=== PATIENT | female | born 1965 | race Caucasian/White ===

== ENCOUNTER → 2019-08-09 | Outpatient (CLI) | payer BC ==
[2019-08-09 12:16] LABS: ABSOLUTE EOSINOPHILS # (AUTO) 0.2 10^3/uL (0.0-0.6); ABSOLUTE LYMPHOCYTES (AUTO) 1.9 10^3/uL (0.5-4.7); ABSOLUTE MONOCYTES (AUTO) 0.7 10^3/uL (0.1-1.4); ABSOLUTE NEUT (AUTO) 3.6 10^3/uL (1.7-8.2); BASOPHILS % (AUTO) 0.5 % (0-2); EOSINOPHILS % (AUTO) 2.8 % (0-6); HEMATOCRIT 40.8 % (36.0-47.0); HEMOGLOBIN 13.8 g/dL (12.0-15.5); LYMPHOCYTES % (AUTO) 29.2 % (13-45); MEAN CORPUSCULAR HEMOGLOBIN 31.3 pg (27.0-33.4); MEAN CORPUSCULAR HGB CONC 33.9 g/dL (32.0-36.0); MEAN CORPUSCULAR VOLUME 92 fl (80-97); MONOCYTES % (AUTO) 11.2 % (3-13); PLATELET COUNT 156 10^3/uL (150-450); RED BLOOD COUNT 4.42 10^6/uL (3.72-5.28); RED CELL DISTRIBUTION WIDTH 13.7 % (11.5-14.0); SEGMENTED NEUTROPHILS % (AUTO) 56.3 % (42-78); TOTAL CELLS COUNTED % (AUTO) 100 %; WHITE BLOOD COUNT 6.4 10^3/uL (4.0-10.5)
[2019-08-09 12:54] LABS: ALBUMIN 4.7 g/dL (3.5-5.0); ALKALINE PHOSPHATASE 77 U/L (38-126); ASPARTATE AMINO TRANSFERASE 53 U/L (14-36); BILIRUBIN,DIRECT 0.2 mg/dL (0.0-0.4); BILIRUBIN,TOTAL 0.4 mg/dL (0.2-1.3); TOTAL PROTEIN 6.9 g/dL (6.3-8.2)
== END ==
LOC: OD 11:14
PROVIDERS: ATTEND Ophthalmology
DX: H53.10 Unspecified subjective visual disturbances (principal); H30.93 Unspecified chorioretinal inflammation, bilateral; H35.052 Retinal neovascularization, unspecified, left eye
CPT/HCPCS: 36415; 80076; 85025

== ENCOUNTER 2019-11-20 20:22 | Emergency (ER) | payer BC ==
[2019-11-20] MEDS ORDERED: HYDROCODONE/ACETAMINOPHEN 5-325 MG TABLET PO ONE (21:35)
--- NOTE | 2019-11-20 21:37 | ER Document Report ---
ED Medical Screen (RME) - General Chief Complaint: Fall Stated Complaint: FALL,LEFT ELBOW/KNEE PAIN Time Seen by Provider: 11/20/19 21:28 Primary Care Provider: BONNIE DURAN MD [Primary Care Provider] - Follow up as needed Information source: Patient Notes: Patient presents complaining of frequent falls recently. Patient states today she was attempting to get out of her vehicle and fell landing on her left side injuring the elbow, left rib area and left knee. Patient denies any shortness of breath although complains of pain with inspiration. I have greeted and performed a rapid initial assessment of this patient. A comprehensive ED assessment and evaluation of the patient, analysis of test results and completion of the medical decision making process will be conducted by additional ED providers. TRAVEL OUTSIDE OF THE [place] IN LAST 30 DAYS: No - Related Data Allergies/Adverse Reactions: No Known Allergies Allergy (Unverified 11/20/19 21:28) Physical Exam - Vital signs Vitals: Temp Pulse Resp BP Pulse Ox 98.1 F 41 L 18 116/66 98 11/20/19 20:28 11/20/19 20:28 11/20/19 20:28 11/20/19 20:28 11/20/19 20:28 - General General appearance: Alert Notes: Left lower anterior rib tenderness, no abdominal tenderness appreciated from examination in chair Course - Vital Signs Vital signs: Temp Pulse Resp BP Pulse Ox 98.1 F 41 L 18 116/66 98 11/20/19 20:28 11/20/19 20:28 11/20/19 20:28 11/20/19 20:28 11/20/19 20:28 Doctor's Discharge - Discharge Referrals: BONNIE DURAN MD [Primary Care Provider] - Follow up as needed
[2019-11-20 22:24] LABS: ABSOLUTE BASOPHILS # (AUTO) 0.1 10^3/uL (0.0-0.2); ABSOLUTE EOSINOPHILS # (AUTO) 0.3 10^3/uL (0.0-0.6); ABSOLUTE LYMPHOCYTES (AUTO) 2.4 10^3/uL (0.5-4.7); ABSOLUTE MONOCYTES (AUTO) 0.7 10^3/uL (0.1-1.4); ABSOLUTE NEUT (AUTO) 3.2 10^3/uL (1.7-8.2); BASOPHILS % (AUTO) 0.8 % (0-2); HEMATOCRIT 39.1 % (36.0-47.0); LYMPHOCYTES % (AUTO) 36.6 % (13-45); MEAN CORPUSCULAR HEMOGLOBIN 31.1 pg (27.0-33.4); MEAN CORPUSCULAR HGB CONC 33.2 g/dL (32.0-36.0); MEAN CORPUSCULAR VOLUME 94 fl (80-97); MONOCYTES % (AUTO) 10.9 % (3-13); PLATELET COUNT 159 10^3/uL (150-450); RED BLOOD COUNT 4.17 10^6/uL (3.72-5.28); RED CELL DISTRIBUTION WIDTH 13.2 % (11.5-14.0); SEGMENTED NEUTROPHILS % (AUTO) 47.7 % (42-78); TOTAL CELLS COUNTED % (AUTO) 100 %; WHITE BLOOD COUNT 6.6 10^3/uL (4.0-10.5)
[2019-11-20 22:33] LABS: APPEARANCE,URINE SLIGHTLY-CLOUDY; BILIRUBIN,URINE NEGATIVE (NEGATIVE); CALCIUM OXALATE CRYSTALS,URINE MODERATE /HPF; COLOR,URINE YELLOW; GLUCOSE, URINE NEGATIVE (NEGATIVE); KETONES,URINE TRACE mg/dL (NEGATIVE); LEUKOCYTE ESTERASE,URINE TRACE (NEGATIVE); NITRITE,URINE NEGATIVE (NEGATIVE); PROTEIN,URINE 30 mg/dL (NEGATIVE); URINE SPECIFIC GRAVITY 1.034
[2019-11-20 22:40] LABS: ALBUMIN 4.2 g/dL (3.5-5.0); ALKALINE PHOSPHATASE 69 U/L (38-126); ANION GAP 9 (5-19); ASPARTATE AMINO TRANSFERASE 38 U/L (14-36); BILIRUBIN,DIRECT 0.3 mg/dL (0.0-0.4); BILIRUBIN,TOTAL 0.4 mg/dL (0.2-1.3); BLOOD UREA NITROGEN 19 mg/dL (7-20); CALCIUM 10.3 mg/dL (8.4-10.2); CARBON DIOXIDE 27 mmol/L (22-30); CHLORIDE 105 mmol/L (98-107); GLUCOSE 122 mg/dL (75-110); POTASSIUM 4.1 mmol/L (3.6-5.0); TOTAL PROTEIN 6.9 g/dL (6.3-8.2)
--- NOTE | 2019-11-20 23:52 | RADIOLOGY REPORT (SQ) ---
Left knee four view on 11/20/2019 at 10:31 PM CLINICAL INDICATION: Pain after fall COMPARISON: None FINDINGS: There are no fractures. No joint effusion is noted. Visualized joints are well aligned. No bony abnormality is noted. IMPRESSION: No acute abnormality.
--- NOTE | 2019-11-20 23:53 | RADIOLOGY REPORT (SQ) ---
Chest 2 view on 11/20/2019 at 10:24 PM CLINICAL INDICATION: Left rib pain after fall COMPARISON: None FINDINGS: Bilateral nipple shadows are noted. Lungs are clear. There is no pneumothorax or pleural effusion. Cardiac, hilar and mediastinal contours are within normal limits. Pulmonary vascularity is within normal limits. No bony abnormality is noted. IMPRESSION: No acute disease.
--- NOTE | 2019-11-20 23:57 | RADIOLOGY REPORT (SQ) ---
Left elbow four view on 11/20/2019 at 10:22 PM CLINICAL INDICATION: Elbow pain after fall COMPARISON: None FINDINGS: There are no fractures. Visualized joints are well aligned. No joint effusion to suggest an occult fracture is noted. No bony normality is noted. IMPRESSION: No acute abnormality.
[2019-11-21] MEDS ORDERED: DIPH/PERTUSS(ACELL)/TETANUS VAC/PF 0.5 ML SYR (>=10YO) IM ONE (00:29)
[2019-11-21] MEDS ORDERED: NEOMY/BACITRAC ZN/POLY OINT 15 GM TP ONE (00:38)
[2019-11-21] MEDS ORDERED: HYDROCODONE/ACETAMINOPHEN 5-325 MG TABLET PO ONE ×2 (00:45→02:44)
--- NOTE | 2019-11-21 00:53 | ER Document Report ---
ED General - General Chief Complaint: Fall Stated Complaint: FALL,LEFT ELBOW/KNEE PAIN Time Seen by Provider: 11/20/19 21:28 Primary Care Provider: [facility] [Provider Group] - Follow up in 3-5 days (Follow-up in the care clinic for dental referral or you can see a dentist choosing) BONNIE DURAN MD [ASSOCIATE] - Follow up as needed KODY CLARKE MD [EMERITUS] - Follow up in 3-5 days TRAVEL OUTSIDE OF THE [place] IN LAST 30 DAYS: No - Related Data Allergies/Adverse Reactions: No Known Allergies Allergy (Unverified 11/20/19 21:28) Past Medical History - General Information source: Patient - Social History Smoking Status: Former Smoker Family History: Reviewed & Not Pertinent Patient has suicidal ideation: No Patient has homicidal ideation: No Physical Exam - Vital signs Vitals: Temp Pulse Resp BP Pulse Ox 98.1 F 41 L 18 116/66 98 11/20/19 20:28 11/20/19 20:28 11/20/19 20:28 11/20/19 20:28 11/20/19 20:28 - Notes Notes: Resents emerged department status post fall about 12 hours ago. She was at the doctor's office getting ready to get out of the car when her foot got hung up on her pocketbook causing her to fall onto her left knee and left elbow. She thinks she might of rolling or her elbow went into her anterior chest on the left she did not hit her head. There is no loss of consciousness. She sat on the ground for few minutes and then was able to get to the doctor's office. Resents now for evaluation. Plan for a mild frontal headache pain over left anterior chest left knee and elbow pain. Again she denies hitting her head she has no abnormal vision neck pain shortness of breath nausea vomiting or abdominal pain. Says her appetite is been good and had something to eat this afternoon Reports that she is has been having frequent stumbling episodes over the past several months. Most of times occurs when she first stands up leg seems to jerk a little bit and stumbles but has not really fallen at all. She has had occ asional episodes when she has been walking usually associated with pain in her left groin but again indicates he has really fallen just kind of stumbled. Seen anybody for this. says she is not really formed at all in between his episodes she feels fine. Not had any palpitations pain or shortness of breath associated with this Past medical history is negative for diabetes hypertension or heart disease. She does have fibromyalgia and chronic eye problems Social history smokes but quit occasional alcohol. Tetanus status is unknown Medication she is not sure what medication she takes for blood pressure but does not think is a diuretic Review of systems pertinent positives and negatives in HPI otherwise all the systems were reviewed and acutely negative PHYSICIAN EXAM -vital signs are noted triage note and note from triage reviewed he was noted GENERAL: Well-appearing, well-nourished and in __mild distress____ HEAD: Atraumatic, normocephalic. EYES: Pupils equal round and reactive to light, extraocular movements intact, sclera anicteric, conjunctiva are normal. There is a mild injection around the right eye which is chronic ENT: nares patent, oropharynx clear without exudates. Moist mucous membranes. She is. Face is nontender she has a cracked tooth with caries #5 abscess not seen NECK: supple without lymphadenopathy neck is nontender midline full range of motion LUNGS: Breath sounds clear to auscultation bilaterally and equal. No wheezes rales or rhonchi. She has a moderate degree of pain over the lower right anterior costal margin and about the midline no actual crepitus. There is no pain in left upper chest the substernal area or over the left lateral chest HEART: Regular rate and rhythm without murmurs distant heart sounds were not heard ABDOMEN: Soft, nontender, normoactive bowel sounds. No localizing tenderness in the left upper quadrant and spleen is not enlarged EXTREMITIES: Right upper extremity shoulder elbow and wrist are nontender. Right lower extremity knee and ankle are nontender left lower extremity she is got abrasion of the knee. The patella is nontender. Is full range of motion of the knee with no laxity in the posterior medial lateral. The ankle is nontender pulses in the foot extremity the shoulder is nontender. She has some minimal tenderness of the lateral aspect of the elbow with full range of motion with pronation and supination wrist is nontender NEUROLOGICAL: Alert and oriented x4. Cranial nerves he has symmetrical smile facies and shoulder shrug. His motor strength is 5/5 bilaterally in the upper and lower extremities. Toes downgoing. Sensation is intact to light touch is a negative Romberg and normal gait observed by me normal PSYCH: Normal mood, normal affect. SKIN: Warm, Dry, normal turgor, no rashes or lesions noted. BACK-nontender in the midline pelvis is stable for range of motion both hips Differential diagnosis includes cerebellar lesions cephalitis electrolyte abnormality anemia arrhythmia fracture Course - Re-evaluation Re-evalutation: 11/21/19 00:52 ED patient is remained stable with serial neurological exams nonfocal she was given dose of Vicodin as a tetanus shot 11/21/19 02:16 Medical decision making patient presents status post fall getting out of the car. Work-up is unremarkable she looks well can be discharged home. Unclear as to why she is having these episodes of stumbling. Will need follow-up as an outpatient. To be asymptomatic with the PVCs doubt that her heart rate was really 41 when she arrived. Plan at this point will discharge her home given a prescription for Vicodin 1 side effects of medication. Should be given the number for the care center for follow-up and for dental care in 1 week and also given number for cardiology for follow-up. At this time there is no indication for admission. I have discussed the findings with patient/family with return precautions and follow-up recommendations. Verbal discharge instructions given at the bedside and opportunity for questions given. Medication warnings were given if indicated. Patient is in agreement with this plan and has verbalized understanding of return precautions and the need for primary care follow-up as directed.. - Vital Signs Vital signs: Temp Pulse Resp BP Pulse Ox 97.5 F 54 L 16 109/49 L 98 11/21/19 02:38 11/21/19 02:38 11/21/19 02:38 11/21/19 02:38 11/21/19 02:38 - Laboratory Result Diagrams: 11/20/19 21:45 11/20/19 21:45 Laboratory results interpreted by me: 11/20/19 11/20/19 21:45 21:45 Glucose 122 H Calcium 10.3 H AST 38 H Urine Protein 30 H Urine Ketones TRACE H Urine Urobilinogen 2.0 H Ur Leukocyte Esterase TRACE H Urine Ascorbic Acid 40 H - Diagnostic Test Radiology reviewed: Reports reviewed - EKG Interpretation by Me Additional EKG results interpreted by me: 11/21/19 00:53 EKG read by me shows a normal sinus rhythm with ventricular bigeminy QT interval is prolonged at 0.53 there are no old EKGs for comparison Discharge - Discharge Clinical Impression: Multiple contusions, PVCs (premature ventricular contractions), Dental caries Condition: Stable Disposition: HOME, SELF-CARE Additional Instructions: Contusion Your injury has resulted in a contusion -- a crushing of the deep tissues. No injury to important structures was detected during the physician's exam. Contusions vary in the amount of pain they cause, and in the length of time requ ired for healing. Typically, the area will become bruised, and will remain painful to touch for two or three weeks. However, most patients are back to working and playing within a few days. After the initial period of rest and cold-packs, your symptoms (together with the doctor's recommendations) will determine how rapidly you can get back to full activity. Usually this means "do what feels okay, but don't do things that hurt." If re-examination was recommended, it's important to follow up as instructed. Call the doctor or return any time if pain increases, if swelling becomes severe, if you develop numbness or weakness in an injured extremity, or if any other alarming symptoms occur.Abrasions An abrasion is a scraping injury of the skin. Some scarring may result. The seriousness of an abrasion is not always obvious at first. Hidden tissue d amage may be present and infection may occur despite proper care. Complete healing may take from ten days to as long as a month. The healing time depends on the depth of the abrasion, and on the amount of crushing of underlying tissues from the injury. Keep the wound and dressing clean. Do not shower or bathe the area until okayed by the doctor. If the dressing gets wet, remove it and blot the wound dry, then reapply a clean dressing. Dressings should be changed every day. Sunscreen should be used for six months after the skin is healed. If any signs of infection occur (swelling, redness, increasing tenderness, red streaks, profuse purulent drainage from the abrasion, tender lumps in the armpit or groin above the abrasion, or fever), see the doctor immediately. Dental Infection or Abscess You have an infection, perhaps an abscess (pus formation) of the gum around one of your teeth, which is probably decayed. If there is an abscess, it may drain on its own or it may need to be opened or lanced. Severe swelling or drainage around a tooth usually means a deep dental abscess which usually requires evaluation and treatment by a dentist or oral surgeon. Antibiotics may be prescribed while awaiting dental treatment. If you develop high fever with chills, worsening pain, or increasing swelling in the area, see a dentist or oral surgeon immediately or return to the Emergency Department immediately. Please review the discharge instructions, they will tell you about your disease/injury and what you need to return to the ED for Return to the ED if you feel worse or can follow-up with your family doctor The pain medications may cause drowsiness. Be careful if you are using crutches. Do not drive or operate machinery. Do not take Tylenol with the pain medication You need to see a dentist in the next 2 to 3 days Give you the number for cardiology for follow-up also Prescriptions: Hydrocodone/Acetaminophen [[place] 5-325 Tablet] 1 each PO Q6H PRN #10 tablet PRN Reason: Penicillin V Potassium [Penicillin Vk 500 mg Tablet] 500 mg PO BID #10 tablet Referrals: BONNIE DURAN MD [ASSOCIATE] - Follow up as needed KODY CLARKE MD [EMERITUS] - Follow up in 3-5 days [facility] [Provider Group] - Follow up in 3-5 days (Follow-up in the care clinic for dental referral or you can see a dentist choosing)
[2019-11-21 02:39] VITALS: BP 109/49
--- NOTE | 2019-11-21 02:40 | RADIOLOGY REPORT (SQ) ---
CT HEAD WITHOUT IV CONTRAST EXAM DATE: 11/21/2019 12:29 AM [employer] HISTORY: Trauma. COMPARISON: None. TECHNIQUE: CT scan of the brain without IV contrast. This exam was performed according to our departmental dose-optimization program, which includes automated exposure control, adjustment of the mA and/or kV according to patient size and/or use of iterative reconstruction technique. FINDINGS: The ventricles, cisterns, and sulci are age-appropriate. No evidence of acute infarction, intracranial hemorrhage, extra-axial fluid collection, or midline shift. No air-fluid levels are seen in the paranasal sinuses to suggest acute sinusitis. No depressed skull fracture. IMPRESSION: No acute intracranial findings.
[2019-11-21] MEDS ORDERED: HYDROCODONE/ACETAMINOPHEN 5-325 MG (6 TAB/ER DISP) PO PRN (02:50)
--- NOTE | 2019-11-21 20:04 | EKG REPORT ---
SEVERITY:- ABNORMAL ECG - SINUS RHYTHM VENTRICULAR BIGEMINY BORDERLINE T ABNORMALITIES, ANT-LAT LEADS : Confirmed by: Carlos Gonzalez MD 21-Nov-2019 20:03:14
== END 2019-11-21 03:12 | disposition home or self-care (01) ==
LOC: ER 20:22
DX: T14.8XXA Other injury of unspecified body region, initial encounter (principal); S80.212A Abrasion, left knee, initial encounter; R51 Headache; R07.9 Chest pain, unspecified; M25.562 Pain in left knee; M25.522 Pain in left elbow; W19.XXXA Unspecified fall, initial encounter; Y93.89 Activity, other specified; Y92.531 Health care provider office as the place of occurrence of the external cause; K02.9 Dental caries, unspecified; K03.81 Cracked tooth; I49.3 Ventricular premature depolarization; Z87.891 Personal history of nicotine dependence; Z23 Encounter for immunization; Z79.899 Other long term (current) drug therapy
CPT/HCPCS: 36415; 70450; 71046; 80053; 81001; 85025; 90471; 90715; 93005; 93010; 99284; J3490

== ENCOUNTER → 2019-12-23 | Outpatient (CLI) | payer BC ==
[2019-12-23 16:43] LABS: ABSOLUTE EOSINOPHILS # (AUTO) 0.1 10^3/uL (0.0-0.6); ABSOLUTE LYMPHOCYTES (AUTO) 1.7 10^3/uL (0.5-4.7); ABSOLUTE MONOCYTES (AUTO) 0.5 10^3/uL (0.1-1.4); ABSOLUTE NEUT (AUTO) 3.1 10^3/uL (1.7-8.2); BASOPHILS % (AUTO) 0.6 % (0-2); HEMATOCRIT 37.8 % (36.0-47.0); HEMOGLOBIN 12.8 g/dL (12.0-15.5); LYMPHOCYTES % (AUTO) 30.8 % (13-45); MEAN CORPUSCULAR HEMOGLOBIN 31.3 pg (27.0-33.4); MEAN CORPUSCULAR HGB CONC 33.8 g/dL (32.0-36.0); MEAN CORPUSCULAR VOLUME 93 fl (80-97); MONOCYTES % (AUTO) 9.9 % (3-13); PLATELET COUNT 152 10^3/uL (150-450); RED BLOOD COUNT 4.08 10^6/uL (3.72-5.28); RED CELL DISTRIBUTION WIDTH 13.3 % (11.5-14.0); SEGMENTED NEUTROPHILS % (AUTO) 56.7 % (42-78); TOTAL CELLS COUNTED % (AUTO) 100 %; WHITE BLOOD COUNT 5.5 10^3/uL (4.0-10.5)
[2019-12-23 17:11] LABS: ALBUMIN 4.3 g/dL (3.5-5.0); ALKALINE PHOSPHATASE 80 U/L (38-126); ASPARTATE AMINO TRANSFERASE 37 U/L (14-36); BILIRUBIN,TOTAL 0.3 mg/dL (0.2-1.3); TOTAL PROTEIN 6.2 g/dL (6.3-8.2)
== END ==
LOC: OD 15:38
PROVIDERS: ATTEND Ophthalmology
DX: H30.93 Unspecified chorioretinal inflammation, bilateral (principal); H35.053 Retinal neovascularization, unspecified, bilateral; H25.13 Age-related nuclear cataract, bilateral; H25.043 Posterior subcapsular polar age-related cataract, bilateral; H43.813 Vitreous degeneration, bilateral
CPT/HCPCS: 36415; 80076; 85025

== ENCOUNTER 2020-03-06 15:00 | Emergency (ER) | payer BC ==
--- NOTE | 2020-03-06 15:25 | ER Document Report ---
ED Medical Screen (RME) - General Chief Complaint: Dizziness Stated Complaint: HEADACHE,DIZZINESS,TONGUE NUMBNESS Time Seen by Provider: 03/06/20 15:22 Primary Care Provider: BONNIE DURAN MD [Primary Care Provider] - Follow up as needed Mode of Arrival: Wheelchair Information source: Patient Notes: 54-year-old female presents to ED for complaint of dizziness and headache off and on times a week. She states yesterday her dizziness became much worse she had dry heaves and hot flashes. She states today her dizziness is worse she is having hot flashes and about 2 hours ago she started having some numbness to her tongue. She is alert oriented respirations regular nonlabored she is able to speak in full sentences. She is able to answer all questions appropriately. She does not have any facial droop. She states she is not able to supinate her right arm due to plates and screws in her right arm. Does not have any palmar drift. She does have some nystagmus. I have greeted and performed a rapid initial assessment of this patient. A comprehensive ED assessment and evaluation of the patient, analysis of test results and completion of medical decision making process will be conducted by an additional ED providers. TRAVEL OUTSIDE OF THE [place] IN LAST 30 DAYS: No - Related Data Allergies/Adverse Reactions: No Known Allergies Allergy (Unverified 11/20/19 21:28) Physical Exam - Vital signs Vitals: Temp Pulse Resp BP Pulse Ox 98.9 F 78 18 128/65 H 97 03/06/20 15:03/06/20 15:03/06/20 15:03/06/20 15:03/06/20 15:09 Course - Vital Signs Vital signs: Temp Pulse Resp BP Pulse Ox 98.9 F 78 18 128/65 H 97 03/06/20 15:03/06/20 15:03/06/20 15:03/06/20 15:03/06/20 15:09 Doctor's Discharge - Discharge Referrals: BONNIE DURAN MD [Primary Care Provider] - Follow up as needed
[2020-03-06] MEDS ORDERED: NORMAL SALINE 1000 ML 1,000 ML IV ONE (15:34)
[2020-03-06 16:02] LABS: APPEARANCE,URINE CLEAR; BILIRUBIN,URINE NEGATIVE (NEGATIVE); COLOR,URINE YELLOW; GLUCOSE, URINE NEGATIVE (NEGATIVE); KETONES,URINE NEGATIVE (NEGATIVE); PROTEIN,URINE NEGATIVE (NEGATIVE); UROBILINOGEN,URINE NEGATIVE mg/dL (<2.0)
[2020-03-06 16:06] LABS: ABSOLUTE EOSINOPHILS # (AUTO) 0.1 10^3/uL (0.0-0.6); ABSOLUTE LYMPHOCYTES (AUTO) 1.2 10^3/uL (0.5-4.7); ABSOLUTE MONOCYTES (AUTO) 0.4 10^3/uL (0.1-1.4); ABSOLUTE NEUT (AUTO) 3.2 10^3/uL (1.7-8.2); BASOPHILS % (AUTO) 0.7 % (0-2); HEMOGLOBIN 13.2 g/dL (12.0-15.5); LYMPHOCYTES % (AUTO) 24.6 % (13-45); MEAN CORPUSCULAR HEMOGLOBIN 31.7 pg (27.0-33.4); MEAN CORPUSCULAR HGB CONC 33.9 g/dL (32.0-36.0); MEAN CORPUSCULAR VOLUME 94 fl (80-97); MONOCYTES % (AUTO) 8.7 % (3-13); PLATELET COUNT 135 10^3/uL (150-450); RED BLOOD COUNT 4.17 10^6/uL (3.72-5.28); RED CELL DISTRIBUTION WIDTH 14.2 % (11.5-14.0); TOTAL CELLS COUNTED % (AUTO) 100 %
[2020-03-06 16:21] LABS: ALBUMIN 4.5 g/dL (3.5-5.0); ALKALINE PHOSPHATASE 86 U/L (38-126); ASPARTATE AMINO TRANSFERASE 41 U/L (14-36); BILIRUBIN,TOTAL 0.4 mg/dL (0.2-1.3); BLOOD UREA NITROGEN 14 mg/dL (7-20); CALCIUM 9.7 mg/dL (8.4-10.2); GLUCOSE 105 mg/dL (75-110)
--- NOTE | 2020-03-06 16:23 | ER Document Report ---
ED General - General Chief Complaint: Dizziness Stated Complaint: HEADACHE,DIZZINESS,TONGUE NUMBNESS Time Seen by Provider: 03/06/20 15:22 Primary Care Provider: BONNIE DURAN MD [ASSOCIATE] - Follow up as needed Mode of Arrival: Wheelchair Information source: Patient Notes: nursing notes Pt ambulated to bathroom & back to room without difficulty. Pt sitting up in bed, Resp even & unlabored. Pt able to speak in complete sentences. Pt reports headache to left side of head and dizziness that started a week ago. Pt denies injury. Pt able to move all ext equally at this time. NAD noted at present time. [place] note 54-year-old female presents to ED for complaint of dizziness and headache off and on times a week. She states yesterday her dizziness became much worse she had dry heaves and hot flashes. She states today her dizziness is worse she is having hot flashes and about 2 hours ago she started having some numbness to her tongue. She is alert oriented respirations regular nonlabored she is able to speak in full sentences. She is able to answer all questions appropriately. She does not have any facial droop. She states she is not able to supinate her right arm due to plates and screws in her right arm. Does not have any palmar drift. She does have some nystagmus. my note; 54-year-old female arrives with chief complaint of having 2 events this week with dorsal headache and occipital headache that lasted around 10 minutes with nausea and dizziness and feeling hot flashes. Yesterday she was in [facility] and began to have severe sweatiness and feeling flushed. She denies any chest pain but has been diagnosed with heart arrhythmia and was evaluated by Dr. Anderson in [facility] with echo in January but upon calling for results was advised that this has to be delivered by a physician. I asked if she wants to see Dr. Jacobson here in town and she was positive about this. She lives in [place]. She thinks she may have some sinus problems from the pollen for the last 6 weeks but denies any sore throat fever chills cough or cold.. TRAVEL OUTSIDE OF THE [place] IN LAST 30 DAYS: No - Related Data Allergies/Adverse Reactions: No Known Allergies Allergy (Verified 03/06/20 16:10) Past Medical History - General Information source: Patient - Social History Smoking Status: Current Every Day Smoker Cigarette use (# per day): Yes Chew tobacco use (# tins/day): No Smoking Education Provided: Yes Frequency of alcohol use: Occasional Drug Abuse: None Lives with: Family Family History: Reviewed & Not Pertinent Patient has suicidal ideation: No Patient has homicidal ideation: No - Past Medical History Cardiac Medical History: Reports: Hx Hypercholesterolemia, Hx Hypertension Past Surgical History: Reports: Hx Section - x2 Review of Systems - Review of Systems Constitutional: See HPI, Diaphoresis, Malaise, Weakness, Recent illness EENT: No symptoms reported, See HPI, Nose congestion, Sinus pressure, Other - ear congestion Cardiovascular: No symptoms reported Respiratory: No symptoms reported Gastrointestinal: No symptoms reported Genitourinary: No symptoms reported Female Genitourinary: No symptoms reported Musculoskeletal: No symptoms reported Skin: No symptoms reported Hematologic/Lymphatic: No symptoms reported Neurological/Psychological: No symptoms reported Physical Exam - Vital signs Vitals: Temp Pulse Resp BP Pulse Ox 98.9 F 78 18 128/65 H 97 03/06/20 15:09 03/06/20 15:09 03/06/20 15:09 03/06/20 15:09 03/06/20 15:09 Interpretation: Normal - General General appearance: Alert - HEENT Head: Normocephalic, Atraumatic Eyes: Normal Pupils: PERRL Ears: Normal External canal: Normal Tympanic membrane: Serous effusion - terese Sinus: Normal Nasal: Normal Mouth/Lips: Normal Pharynx: Normal Neck: Normal - Respiratory Respiratory status: No respiratory distress Chest status: Nontender Breath sounds: Normal Chest palpation: Normal - Cardiovascular Rhythm: Irregularly irregular Heart sounds: Normal auscultation Murmur: No Friction rub: No Erasmo's crunch: No - Abdominal Inspection: Normal Distension: No distension Bowel sounds: Normal Tenderness: Nontender Organomegaly: No organomegaly - Genitourinary Bimanuel exam: Other - deferred - Back Back: Normal, Nontender - Extremities General upper extremity: Normal inspection General lower extremity: Normal inspection - Neurological Neuro grossly intact: Yes Cognition: Normal Orientation: AAOx4 Camryn Coma Scale Eye Opening: Spontaneous [place] Coma Scale Verbal: Oriented [place]ryn Coma Scale Motor: Obeys Commands [place] Coma Scale Total: 15 Speech: Normal Motor strength normal: LUE, RUE, LLE, RLE Sensory: Normal - Psychological Associated symptoms: Normal mood - Skin Skin Temperature: Warm Skin Moisture: Dry Course - Vital Signs Vital signs: Temp Pulse Resp BP Pulse Ox 98.4 F 80 18 140/77 H 97 03/06/20 18:33 03/06/20 18:33 03/06/20 18:33 03/06/20 18:33 03/06/20 18:33 - Laboratory Result Diagrams: 03/06/20 15:50 03/06/20 15:50 Laboratory results interpreted by me: 03/06/20 03/06/20 15:50 15:50 RDW 14.2 H Plt Count 135 L AST 41 H Lipase 670.0 H Critical Care Note - Critical Care Note Total time excluding time spent on procedures (mins): 90 Comments: I discussed this case with Dr. Jacobson renewals representative at 181 and will see patient in the office. Patient reports she is a drinking person and drinks beer and I advised her of her lipase elevation. Avoid alcohol if possible Discharge - Discharge Clinical Impression: Elevated lipase Serous otitis media Qualifiers: Chronicity: unspecified Laterality: unspecified laterality Qualified Code(s): H65.90 - Unspecified nonsuppurative otitis media, unspecified ear Headache Qualifiers: Headache type: unspecified Headache chronicity pattern: acute headache Intractability: not intractable Qualified Code(s): R51 - Headache Abnormal heart rhythm Qualifiers: Arrhythmia type: unspecified cardiac arrhythmia Qualified Code(s): I49.9 - Cardiac arrhythmia, unspecified Pancreatitis Qualifiers: Chronicity: acute Pancreatitis type: alcohol induced Acute pancreatitis complication: unspecified Qualified Code(s): K85.20 - Alcohol induced acute pancreatitis without necrosis or infection Condition: Good Disposition: HOME, SELF-CARE Additional Instructions: Follow Dr. Jacobson in his office this week return to ER as needed take medicines as directed encourage fluids; you also need to follow-up with personal doctor about your increased lipase as well. Prescriptions: Meclizine HCl [Antivert 25 mg Tablet] 25 mg PO BID PRN #14 tablet PRN Reason: Mupirocin [Bactroban 2% Ointment 22 gm] 1 applic NASL HSP PRN #1 tube PRN Reason: Forms: Return to Work Referrals: BONNIE DURAN MD [ASSOCIATE] - Follow up as needed
[2020-03-06 16:29] LABS: CARBON DIOXIDE 27 mmol/L (22-30); CHLORIDE 106 mmol/L (98-107); POTASSIUM 4.2 mmol/L (3.6-5.0)
[2020-03-06 16:37] LABS: ANION GAP 5 (5-19)
--- NOTE | 2020-03-06 17:12 | RADIOLOGY REPORT (SQ) ---
EXAM DESCRIPTION: CHEST SINGLE VIEW IMAGES COMPLETED DATE/TIME: 03/06/2020 3:50 pm REASON FOR STUDY: dizzy COMPARISON: 11/20/2019 EXAM PARAMETERS: NUMBER OF VIEWS: One view. TECHNIQUE: Single frontal radiographic view of the chest acquired. RADIATION DOSE: NA LIMITATIONS: None. FINDINGS: LUNGS AND PLEURA: No opacities, masses or pneumothorax. No pleural effusion. MEDIASTINUM AND HILAR STRUCTURES: No masses. Contour normal. HEART AND VASCULAR STRUCTURES: Heart normal in size. Normal vasculature. BONES: No acute findings. HARDWARE: None in the chest. OTHER: No other significant finding. IMPRESSION: NO ACUTE RADIOGRAPHIC FINDING IN THE CHEST. TECHNICAL DOCUMENTATION: JOB ID: [id number] [employer]- All Rights Reserved Reading location - IP/workstation name: [email or web address]
--- NOTE | 2020-03-06 18:07 | RADIOLOGY REPORT (SQ) ---
EXAM DESCRIPTION: CT HEAD WITHOUT IMAGES COMPLETED DATE/TIME: 03/06/2020 4:43 pm REASON FOR STUDY: dizzy COMPARISON: 11/21/2019 TECHNIQUE: Axial images acquired through the brain without intravenous contrast. Images reviewed wi th bone, brain and subdural windows. Additional sagittal and coronal reconstructions were generated. Images stored on PACS. All CT scanners at this facility use dose modulation, iterative reconstruction, and/or weight based d osing when appropriate to reduce radiation dose to as low as reasonably achievable (ALARA). [facility]: Dose Right [facility]: CareDose [facility]: Dose Right [facility]: Teradose 4D [facility]: Smart LiveStub RADIATION DOSE: CT Rad equipment meets quality standard of care and radiation dose reduction techniq ues were employed. CTDIvol: 53.2 mGy. DLP: 1017 mGy-cm. mGy. LIMITATIONS: None. FINDINGS: VENTRICLES: Normal size and contour. CEREBRUM: No masses. No hemorrhage. No midline shift. No evidence for acute infarction. Normal gra y/white matter differentiation. No areas of low density in the white matter. CEREBELLUM: No masses. No hemorrhage. No alteration of density. No evidence for acute infarction. EXTRAAXIAL SPACES: No fluid collections. No masses. ORBITS AND GLOBE: No intra- or extraconal masses. Normal contour of globe without masses. CALVARIUM: No fracture. Prominent fluid spaces are noted in the right high parietal calvarium, uncha nged from prior. No suspicious bone lesions. PARANASAL SINUSES: No fluid or mucosal thickening. SOFT TISSUES: No mass or hematoma. OTHER: No other significant finding. IMPRESSION: No acute intracranial hemorrhage, mass, or evidence of acute territorial infarct. EVIDENCE OF ACUTE STROKE: NO. COMMENT: Quality ID # 436: Final reports with documentation of one or more dose reduction techniques (e.g., Automated exposure control, adjustment of the mA and/or kV according to patient size, use of iterative reconstruction technique) TECHNICAL DOCUMENTATION: JOB ID: [id number] [employer]- All Rights Reserved Reading location - IP/workstation name: [email or web address]
[2020-03-06] MEDS ORDERED: KETOROLAC TROMETHAMINE INJ/PF 30 MG/1 ML SDV IV ONE (18:13)
[2020-03-06] MEDS ORDERED: HYDROCODONE/ACETAMINOPHEN 5-325 MG (6 TAB/ER DISP) PO PRN (18:25)
[2020-03-06 18:35] VITALS: BP 140/77
--- NOTE | 2020-03-06 20:49 | EKG REPORT ---
SEVERITY:- ABNORMAL ECG - SINUS RHYTHM VENTRICULAR TRIGEMINY NONSPECIFIC T ABNORMALITIES, LATERAL LEADS : Confirmed by: Carlos Gonzalez MD 06-Mar-2020 20:48:46
== END 2020-03-06 19:01 | disposition home or self-care (01) ==
LOC: ER 15:00
DX: K85.20 Alcohol induced acute pancreatitis without necrosis or infection (principal); H65.90 Unspecified nonsuppurative otitis media, unspecified ear; I49.9 Cardiac arrhythmia, unspecified; R79.89 Other specified abnormal findings of blood chemistry; R51 Headache; R42 Dizziness and giddiness; R20.0 Anesthesia of skin; R53.81 Other malaise; F17.210 Nicotine dependence, cigarettes, uncomplicated; E78.00 Pure hypercholesterolemia, unspecified; I10 Essential (primary) hypertension
CPT/HCPCS: 93005; 99291; 99292; 96361; 96374; 36415; 83690; 84443; 85025; 80053; 81001; 84484; 71045; 70450; 93010; J1885; J7030

== ENCOUNTER 2020-04-09 08:10 | Day surgery (SDC) | payer BC ==
[~2020-04-09 08:10] MED LIST: LACTATED RINGERS 1000 ML IV PRN; LIDOCAINE 0.5% INJ-PF (5 MG/ML) 50 ML SDV SUBCUT PRN
[2020-04-09] MEDS ORDERED: PROPOFOL INJ 200 MG/20 ML VIAL IV ONE (09:52)
--- NOTE | 2020-04-09 12:10 | Operative Report ---
Operative Report DATE OF SURGERY: 04/09/20 Operative Report: The risks, benefits and alternatives of the procedure including the risks of bleeding, perforation requiring surgery have been explained to the patient in detail and informed consent has been obtained. Patient is placed in a left, lateral decubital position. Timeout was called. Propofol medication is administered. A rectal examination is done which did not reveal any masses, tears or fissures. An Olympus videoscope was introduced into the patient's r ectum. Scope was then carefully advanced all the way to the cecum. Cecum was identified by the usual anatomical landmarks including the ileocecal valve as well as the appendiceal office. Photodocumentation is obtained. Scope was then sequentially pulled back via the various segments of the colon including the ascending colon, hepatic flexure, transverse colon, splenic flexure, descending colon finding to the rectosigmoid portions of the colon. Retroflexion maneuvers performed. PREOPERATIVE DIAGNOSIS: Dysphagia. change in bowel habits POSTOPERATIVE DIAGNOSIS: Ileocecal valve inflammation status post biopsy. possible lipoma at the hepatic flexure/ascending colon area status post biopsy. Internal hemorrhoids. Gastritis status post biopsy. Hiatal hernia. Esophagitis status post biopsy. Schatzki's ring that is broken OPERATION: Colonoscopy with biopsy. EGD with biopsy SURGEON: EULOGIO MARTIN ANESTHESIA: LMAC TISSUE REMOVED OR ALTERED: As noted above. COMPLICATIONS: None. ESTIMATED BLOOD LOSS: None. INTRAOPERATIVE FINDINGS: As noted above. PROCEDURE: Patient tolerated the procedure well. No immediate postprocedure complications are noted. Patient is discharged in good condition. Discharge date 04/08/2020. Discharge diet: Regular. Discharge activity: Regular. 2 to 3-week follow-up to discuss findings. Patient is instructed call the office or proceed to the emergency room should there be any further problems questions. Wait on the pathology.
[2020-04-09 13:00] VITALS: BP 132/57
== END 2020-04-09 11:48 | disposition home or self-care (01) ==
LOC: OROUT 08:10
PROVIDERS: ATTEND Internal Medicine Gastroenterology
DX: K29.50 Unspecified chronic gastritis without bleeding (principal); K52.9 Noninfective gastroenteritis and colitis, unspecified; K64.8 Other hemorrhoids; K44.9 Diaphragmatic hernia without obstruction or gangrene; K21.0 Gastro-esophageal reflux disease with esophagitis; K22.2 Esophageal obstruction; I25.10 Atherosclerotic heart disease of native coronary artery without angina pectoris; Z87.891 Personal history of nicotine dependence; I10 Essential (primary) hypertension; Z03.818 Encounter for observation for suspected exposure to other biological agents ruled out; E78.1 Pure hyperglyceridemia; Z79.899 Other long term (current) drug therapy; Z86.010 Personal history of colon polyps
CPT/HCPCS: 43239; 45380; 87635; 88342 ×2; 88305 ×2; 00813; J2704; 813

== ENCOUNTER → 2020-05-24 | Outpatient (CLI) | payer BC ==
--- NOTE | 2020-05-24 11:32 | RADIOLOGY REPORT (SQ) ---
EXAM DESCRIPTION: BARIUM SWALLOW ESOPHAGUS IMAGES COMPLETED DATE/TIME: 05/24/2020 8:36 am REASON FOR STUDY: DYSPHAGIA R13.10 DYSPHAGIA, UNSPECIFIED COMPARISON: None. TECHNIQUE: Under fluoroscopic guidance, patient ingested effervescent granules followed by thick and thin barium. Fluoroscopic spot images and routine radiographic images acquired and stored on PACS. 12 MM BARIUM TABLET GIVEN: Yes. Slight delay at the GE junction. LIMITATIONS: None. FLUOROSCOPY TIME: FLUORO TIME: 3.3 minutes of fluoroscopy was used. 11 images saved to PACS. FINDINGS: NEUROMUSCULAR COORDINATION OF SWALLOW: Normal. No aspiration. Mild cricopharyngeal hypert rophy and small Zenker's diverticulum. ESOPHAGEAL MOTILITY: Weak primary peristalsis with stasis of barium. No esophageal spasm. ESOPHAGEAL MUCOSA: Normal mucosa without masses or ulceration. GASTRO-ESOPHAGEAL JUNCTION: Small sliding hiatal hernia with mild narrowing from Schatzki's ring. Th ere is slight delay in passage of the tablet into the stomach. Mild reflux seen. NON-GI TRACT STRUCTURES: No significant finding. OTHER: Postoperative changes of the fundus of the stomach from previous Amie fundoplication. There appears be recurrence of the hiatal hernia although there are no previous studies available for francesco waterman. IMPRESSION: 1. ESOPHAGEAL DYSMOTILITY. 2. MILD CRICOPHARYNGEAL HYPERTROPHY WITH A ZENKER'S DIVERTICULUM. 3. SMALL SLIDING HIATAL HERNIA WITH MILD NARROWING FROM EARLY SCHATZKI'S RING CAUSING SLIGHT DELAY I N PASSAGE OF A 12 MM BARIUM TABLET. MILD REFLUX IDENTIFIED. COMMENT: Quality ID 145: Final reports for procedures using fluoroscopy that document radiation exp osure indices, or exposure time and number of fluorographic images (if radiation exposure indices are not available) TECHNICAL DOCUMENTATION: JOB ID: [id number] 2010 [employer]- All Rights Reserved Reading location - IP/workstation name: [email or web address]
== END ==
LOC: RAD 07:58
PROVIDERS: ATTEND Internal Medicine Gastroenterology
DX: R13.10 Dysphagia, unspecified (principal)
CPT/HCPCS: 74220

== ENCOUNTER → 2020-06-17 | Outpatient (CLI) | payer BC ==
--- NOTE | 2020-06-17 15:09 | RADIOLOGY REPORT (SQ) ---
EXAM DESCRIPTION: CERV SP 3 VIEW OR LESS IMAGES COMPLETED DATE/TIME: 06/17/2020 2:43 pm REASON FOR STUDY: CERVICALGIA (M54.2) M12.89 OTH SPECIFIC ARTHROPATHIES, NEC, MULTIPLE SITES M54.2 CERVICALGIA M54.5 LOW BACK PAIN COMPARISON: None. NUMBER OF VIEWS: Three views. TECHNIQUE: AP, lateral and odontoid radiographic images acquired of the cervical spine. LIMITATIONS: None. FINDINGS: Straightening of the lordotic curve. There is disc space narrowing and osteophyte formati on at multiple levels, especially C5- 6. Prevertebral soft tissues are normal. IMPRESSION: Cervical disc disease. TECHNICAL DOCUMENTATION: JOB ID: [id number] 2010 [employer]- All Rights Reserved Reading location - IP/workstation name: [email or web address]
--- NOTE | 2020-06-17 15:10 | RADIOLOGY REPORT (SQ) ---
EXAM DESCRIPTION: L SPINE 2 VIEWS IMAGES COMPLETED DATE/TIME: 06/17/2020 2:43 pm REASON FOR STUDY: LOW BACK PAIN (M54.5) M12.89 OTH SPECIFIC ARTHROPATHIES, NEC, MULTIPLE SITES M54. 2 CERVICALGIA M54.5 LOW BACK PAIN COMPARISON: None. NUMBER OF VIEWS: Three views. TECHNIQUE: AP, lateral, and inferior coned down lateral views of the lumbar spine. LIMITATIONS: None. FINDINGS: MINERALIZATION: Normal. SEGMENTATION: Normal. No transitional anatomy. ALIGNMENT: Normal. VERTEBRAE: Maintained height. No fracture or worrisome bone lesion. DISCS: Multilevel disc space narrowing with osteophytes. POSTERIOR ELEMENTS: Pedicles and facets are intact. No pars defect or posterior arch defects. Facet arthropathy is present. HARDWARE: None in the spine. PARASPINAL SOFT TISSUES: Normal. PELVIS: Intact as visualized. No fractures or worrisome bone lesions. SI joints intact. OTHER: No other significant finding. IMPRESSION: SPONDYLOSIS WITHOUT BONE LESION OR FRACTURE. TECHNICAL DOCUMENTATION: JOB ID: [id number] 2010 [employer]- All Rights Reserved Reading location - IP/workstation name: [email or web address]
--- NOTE | 2020-06-17 15:11 | RADIOLOGY REPORT (SQ) ---
EXAM DESCRIPTION: SACROILIAC JOINTS IMAGES COMPLETED DATE/TIME: 06/17/2020 2:44 pm REASON FOR STUDY: LOW BACK PAIN (M54.5), FIBROMYALGIA (M79.7), OTHER SPECIFIC ARTHROPATHIES, M12.89 OTH SPECIFIC ARTHROPATHIES, NEC, MULTIPLE SITES M54.2 CERVICALGIA M54.5 LOW BACK PAIN COMPARISON: None. NUMBER OF VIEWS: Three views. TECHNIQUE: AP and oblique views of the sacroiliac joints. LIMITATIONS: None. FINDINGS: Mild sclerosis left SI joint compared to the right. No erosions. No aggressive bone lesi on. IMPRESSION: Mild SI joint arthropathy. TECHNICAL DOCUMENTATION: JOB ID: [id number] 2010 [employer]- All Rights Reserved Reading location - IP/workstation name: [email or web address]
== END ==
LOC: RAD 14:09
PROVIDERS: ATTEND Physician Assistant
DX: M12.89 Other specific arthropathies, not elsewhere classified, multiple sites (principal); M54.2 Cervicalgia; M54.5 Low back pain; M79.7 Fibromyalgia; M79.89 Other specified soft tissue disorders; Z79.899 Other long term (current) drug therapy
CPT/HCPCS: 72040; 72100; 72200

== ENCOUNTER → 2020-08-25 | Outpatient (CLI) | payer BC ==
[2020-08-25 11:52] LABS: ABSOLUTE EOSINOPHILS # (AUTO) 0.1 10^3/uL (0.0-0.6); ABSOLUTE LYMPHOCYTES (AUTO) 0.8 10^3/uL (0.5-4.7); ABSOLUTE MONOCYTES (AUTO) 0.4 10^3/uL (0.1-1.4); BASOPHILS % (AUTO) 0.2 % (0-2); EOSINOPHILS % (AUTO) 0.9 % (0-6); HEMATOCRIT 36.6 % (36.0-47.0); HEMOGLOBIN 12.5 g/dL (12.0-15.5); LYMPHOCYTES % (AUTO) 10.5 % (13-45); MEAN CORPUSCULAR HEMOGLOBIN 29.6 pg (27.0-33.4); MEAN CORPUSCULAR HGB CONC 34.1 g/dL (32.0-36.0); MEAN CORPUSCULAR VOLUME 87 fl (80-97); MONOCYTES % (AUTO) 6.2 % (3-13); PLATELET COUNT 126 10^3/uL (150-450); RED BLOOD COUNT 4.23 10^6/uL (3.72-5.28); RED CELL DISTRIBUTION WIDTH 14.7 % (11.5-14.0); SEGMENTED NEUTROPHILS % (AUTO) 82.2 % (42-78); TOTAL CELLS COUNTED % (AUTO) 100 %; WHITE BLOOD COUNT 7.3 10^3/uL (4.0-10.5)
[2020-08-25 12:19] LABS: ALBUMIN 4.4 g/dL (3.5-5.0); ALKALINE PHOSPHATASE 63 U/L (38-126); ASPARTATE AMINO TRANSFERASE 37 U/L (14-36); BILIRUBIN,DIRECT 0.3 mg/dL (0.0-0.4); BILIRUBIN,TOTAL 0.6 mg/dL (0.2-1.3); TOTAL PROTEIN 6.3 g/dL (6.3-8.2)
== END ==
LOC: OD 10:32
PROVIDERS: ATTEND Ophthalmology
DX: H30.93 Unspecified chorioretinal inflammation, bilateral (principal)
CPT/HCPCS: 36415; 80076; 85025

== ENCOUNTER → 2020-10-19 | Outpatient (CLI) | payer BC ==
[2020-10-19 16:56] LABS: ABSOLUTE EOSINOPHILS # (AUTO) 0.1 10^3/uL (0.0-0.6); ABSOLUTE LYMPHOCYTES (AUTO) 1.5 10^3/uL (0.5-4.7); ABSOLUTE MONOCYTES (AUTO) 0.5 10^3/uL (0.1-1.4); ABSOLUTE NEUT (AUTO) 4.8 10^3/uL (1.7-8.2); BASOPHILS % (AUTO) 0.4 % (0-2); EOSINOPHILS % (AUTO) 1.6 % (0-6); HEMATOCRIT 39.8 % (36.0-47.0); HEMOGLOBIN 13.1 g/dL (12.0-15.5); MEAN CORPUSCULAR HEMOGLOBIN 28.8 pg (27.0-33.4); MEAN CORPUSCULAR VOLUME 87 fl (80-97); MONOCYTES % (AUTO) 7.2 % (3-13); PLATELET COUNT 170 10^3/uL (150-450); RED BLOOD COUNT 4.55 10^6/uL (3.72-5.28); SEGMENTED NEUTROPHILS % (AUTO) 68.8 % (42-78); TOTAL CELLS COUNTED % (AUTO) 100 %
[2020-10-19 17:17] LABS: ALBUMIN 4.6 g/dL (3.5-5.0); ALKALINE PHOSPHATASE 72 U/L (38-126); ASPARTATE AMINO TRANSFERASE 46 U/L (14-36); BILIRUBIN,DIRECT 0.2 mg/dL (0.0-0.4); BILIRUBIN,TOTAL 0.5 mg/dL (0.2-1.3); TOTAL PROTEIN 6.9 g/dL (6.3-8.2)
== END ==
LOC: OD 15:37
PROVIDERS: ATTEND Ophthalmology
DX: H30.93 Unspecified chorioretinal inflammation, bilateral (principal); H35.053 Retinal neovascularization, unspecified, bilateral; H25.13 Age-related nuclear cataract, bilateral; H25.043 Posterior subcapsular polar age-related cataract, bilateral; H43.813 Vitreous degeneration, bilateral
CPT/HCPCS: 36415; 80076; 85025